=== PATIENT | female | born 1975 | race African-American/Black ===

== ENCOUNTER → 2017-09-01 | Outpatient (CLI) | payer OTHER ==
[2015-08-18 04:35] VITALS: BP 145/68
--- NOTE | 2017-09-01 09:40 | RAD ---
Indication nontoxic multinodular goiter. Grayscale imaging of the thyroid was performed. No prior imaging of the thyroid is available. The right lobe of the thyroid measures 4.8 x 1.5 x 2 cm. Within the right lobe of the thyroid there is a mixed echogenic nodule measuring approximately 1.1 cm in greatest dimension. At the isthmus there is an additional slightly heterogeneous nodule measuring overall 2.5 cm in greatest dimension. A much smaller nodule is additionally noted in the isthmus measuring approximately 7 mm. The left lobe of the thyroid is quite heterogeneous. It measures overall 6.4 x 3.2 x 2.5 cm. Within the left lobe there is a dominant heterogeneous central nodule measuring approximately 5 cm in greatest dimension IMPRESSION: Multiple thyroid nodules. The dominant nodule is in the left lobe measuring approximately 5 cm
== END | disposition home or self-care (01) ==
LOC: US 08:45
PROVIDERS: ATTEND Otolaryngology
DX: E04.2 Nontoxic multinodular goiter (principal)
CPT/HCPCS: 76536

== ENCOUNTER → 2017-10-07 | Outpatient (CLI) | payer OTHER ==
[~2017-10-07] VITALS: Ht 182.9 cm; Wt 100.2 kg
[~2017-10-07] MED LIST: FLUT9.9S NS; OXYC1TAB7 PO
[2017-10-07 09:07] VITALS: BP 102/65
--- NOTE | 2017-10-07 10:45 | RAD ---
Ultrasound-guided left thyroid biopsy, 10/07/2017: History: Multinodular thyroid gland The previous ultrasound study demonstrate multiple bilateral predominantly solid thyroid nodules. The dominant nodules lie in the left lobe of the gland and in the right lobe of the gland extending into the isthmus. These nodules were targeted for aspiration biopsy. We first targeted the largest 4.9 cm mass in the left lobe of the gland. This may actually represent 2 confluent, inseparable nodules. Under local anesthesia, aseptic conditions and sonographic guidance a 25-gauge needle was passed into this nodule via a lateral approach. 4 separate aspirates were obtained and sent to pathology for evaluation. Hemostasis was obtained. Ultrasound-guided right thyroid biopsy, 10/07/2017: We then targeted the 2.5 cm right thyroid nodule at the junction of the right lobe of the gland and the isthmus. Under local anesthesia, aseptic conditions and sonographic guidance a 25-gauge needle was passed into this nodule via a left lateral approach. 4 separate aspirates were obtained and sent to pathology for evaluation. Hemostasis was obtained. The patient tolerated these procedures well and left the department in good condition. The pathology results are pending.
--- NOTE | 2017-10-13 15:01 | PATHOLOGY ---
CYTOPATHOLOGY REPORT CLINICAL HISTORY: Right thyroid isthmus nodule, left thyroid nodule SPECIMEN(S) RECEIVED: A.Fine needle aspiration, Right isthmus thyroid nodule B.Fine needle aspiration, Left thyroid nodule FINAL DIAGNOSIS: A. Right isthmus thyroid nodule, fine needle aspiration, smears and cell block: - [place] category: Benign - Adequate aspirate containing clusters of thyroid follicular cells and scant colloid. B. Left thyroid nodule, fine needle aspiration, smears and cell block: - [place] category: Benign - Adequate aspirate containing clusters of thyroid follicular cells and scant colloid. COMMENT: The right isthmus nodule and left thyroid nodule fine needle aspirations appear similar and reveal clusters of thyroid follicular cells and scant colloid. There are a few microfollicles. We favor a diagnosis of adenomatous nodules, although we cannot absolutely exclude a follicular lesion. There are no cytologic features of papillary carcinoma. The material aspirated may not be entirely airport representative. The case is also examined by Dr. Kobe Walls, cytopathologist, who concurs with the diagnosis. (JPM:; 10/13/2017) PATHOLOGIST: Forrest Marvin M.D. REPORT ELECTRONICALLY SIGNED BY: Forrest Marvin M.D. DATE/TIME: 10/13/2017 15:00 GROSS PATHOLOGY: A. Fine needle aspiration, right isthmus thyroid nodule: The specimen is labeled "Gonzalo, Alex" and consists of two fixed slides, two air dried slides, two H and E slides. Thirty mL of clear pink fluid in fixative from the needle rinse is also submitted and one ThinPrep slide and a alcohol fixed cell block were prepared from this material. Also received is the RNARetain vial labeled which will be held for molecular studies if needed. B. Fine needle aspiration, left thyroid nodule: The specimen is labeled "Gonzalo, Alex" and consists of two fixed slides, two air dried slides, two H and E slides. Thirty mL of clear pink fluid in fixative from the needle rinse is also submitted and one ThinPrep slide and a alcohol fixed cell block were prepared from this material. Also received is the RNARetain vial labeled with which will be held for molecular studies if needed. (lg11.14) TENNIS [employer] HAND(S): BALBIR Bain([facility]) INITIAL CPT CODE(S): A; 66150, 42207 B; 16864, 82521 Professional services performed by [facility] at [facility] [address] [place] [address] Technical services performed by [facility] at [address] [place] [address], [address], [place] [address]. PATIENT: ALEX NG /AGE: 1110/14/1975 (Age: 41) SEX: F PATIENT #: [id number] ALT CASE #: SPECIMEN COLLECTION DATE: 10/07/2017 SPECIMEN RECEIVED DATE: 10/07/[address] [facility] [address] [place] [address], [address] [place] [address] PHONE: [phone] DIRECTOR: Edmund Rosenberg M.D. * * * END OF REPORT * * *
== END | disposition home or self-care (01) ==
LOC: US 08:31
PROVIDERS: ATTEND Otolaryngology
DX: E04.2 Nontoxic multinodular goiter (principal)
CPT/HCPCS: 60300; 76942; 88173; 88305